=== PATIENT | female | born 1980 | race Caucasian/White ===

== ENCOUNTER 2016-06-03 16:02 | Emergency (ER) | payer SELFPAY ==
[~2016-06-03] VITALS: Ht 162.6 cm; Wt 89.5 kg
[~2016-06-03 16:02] MED LIST: HYDR-906 PO; IBUP-1542 PO; MECL-77 PO; ONDA4TAB8 PO; TEMA7.5C2 PO
[2016-06-03 16:47] VITALS: Ht 162.6 cm; Wt 89.5 kg
== END 2016-06-03 19:19 | disposition left against medical advice (07) ==
LOC: FTE 16:02
DX: Z53.21 Procedure and treatment not carried out due to patient leaving prior to being seen by health care provider (principal)

== ENCOUNTER 2017-06-15 16:21 | Inpatient (IN) | END 2017-06-17 20:34 | disposition home or self-care (01) | DRG 445 ==

== ENCOUNTER 2018-02-24 09:17 | Emergency (ER) | END 2018-02-24 14:35 | disposition home or self-care (01) ==